=== PATIENT | female | born 1985 | race Caucasian/White ===

== ENCOUNTER → 2021-10-25 | Outpatient (CLI) | payer SELFPAY, OTHER ==
--- NOTE | 2021-10-25 09:48 | MRI_ITS ---
STUDY: MRI BRAIN WITH AND WITHOUT CONTRAST REASON FOR EXAM: Female, 36 years old. MULTIPLE [id number] TECHNIQUE: Standardized multiplanar fat and water weighted pulse sequences were obtained. 13ml DOtarem via IV was administered for the contrast portion of the examination. COMPARISON: 03/29/2017 FINDINGS: Normal size of the ventricles and extra-axial spaces for the patient''s age. Normal white matter tracts of the supratentorial brain. Normal bilateral basal ganglia. Normal thalami. There is no extra-axial fluid accumulation. Normal flow voids within the major intracranial circulation suggesting patency by spin echo criteria. Normal venous enhancement. There is no enhancing intra-axial or extra-axial abnormality. Normal sella turcica, pituitary gland, infundibular stalk, optic chiasm and hypothalamus. Normal tectal plate and pineal gland. Normal midbrain, meg and medulla. Normal cerebellum. Normal basal cisterns. Normal bilateral temporal bones. Normal bilateral internal auditory canals. There is very mild residual enhancement of the optic nerve consistent with known optic neuritis although there is interval improvement since prior exam. There is mild to moderate diffuse pansinusitis. Normal calvarium and skull base. Normal visualized soft tissue structures. Normal visualized upper cervical spine Previously noted demyelinating lesions are not visualized and there are no new lesions noted MRI/Brain W/WO Contrast IMPRESSION: Mild residual enhancement of the left optic nerve with interval improvement since previous study. Otherwise normal enhanced and unenhanced MRI of the brain. Specifically, no focal demyelinating lesions. Incidental finding of diffuse pansinusitis likely chronic Electronically Signed: Cornelio Tineo MD at 15:57 EDT ,
== END | disposition home or self-care (01) ==
LOC: MRI 09:39
PROVIDERS: PCP Family Medicine; Visit Provider Nurse Practitioner Gerontology
DX: G35 Multiple sclerosis (principal); J32.4 Chronic pansinusitis
CPT/HCPCS: 70553; A9575